=== PATIENT | male | born 1990 | race Caucasian/White ===

== ENCOUNTER 2017-04-21 22:49 | Emergency (ER) | payer SELFPAY ==
[~2017-04-21] VITALS: Ht 182.9 cm; Wt 56.7 kg
[2017-04-22] VITALS: BP 133/83
[2017-04-22] MEDS ORDERED: ACET-704 PO (00:07)
[2017-04-22] MEDS ORDERED: SULF1TAB24 PO (00:07)
--- NOTE | 2017-04-22 00:07 | PHYS DOC ---
Adult General Chief Complaint Chief Complaint: SKIN RASH/ABSCESS [facility] HPI Patient is a 27 year old L presents to the emergency department with complaints of an abscess on the left lower abdominal wall. He states 3 days ago he thought had what he thought was a pimple on the abdominal wall he states that for the last 4 days it has gotten significant bigger. He is using an over- the-counter salve without relief of symptoms. He reports no fever. No chest pain , no abdominal pain, no nausea, no vomiting. Review of Systems Review of Systems Constitutional: Denies fever or chills [] Eyes: Denies change in visual acuity, redness, or eye pain [] HENT: Denies nasal congestion or sore throat [] Respiratory: Denies cough or shortness of breath [] Cardiovascular: No additional information not addressed in HPI [] GI: Denies abdominal pain, nausea, vomiting, bloody stools or diarrhea [] : Denies dysuria or hematuria [] Musculoskeletal: Denies back pain or joint pain [] Integument: Abscess Neurologic: Denies headache, focal weakness or sensory changes [] Endocrine: Denies polyuria or polydipsia [] Physical Exam Physical Exam Constitutional: Well developed, well nourished, no acute distress, non-toxic appearance. [] HENT: Normocephalic, atraumatic, bilateral external ears normal, oropharynx moist, no oral exudates, nose normal. [] Eyes: PERRLA, EOMI, conjunctiva normal, no discharge. [] Neck: Normal range of motion, no tenderness, supple, no stridor. [] Cardiovascular:Heart rate regular rhythm, no murmur [] Lungs & Thorax: Bilateral breath sounds clear to auscultation [] Abdomen: Bowel sounds normal, soft, no tenderness, no masses, no pulsatile masses. [] Skin: Left lower abdominal wall, 1 cm x 2 cm raised erythematous fluctuant abscess. Mildly tender. Back: No tenderness, no CVA tenderness. [] Extremities: No tenderness, no cyanosis, no clubbing, ROM intact, no edema. [] Neurologic: Alert and oriented X 3, normal motor function, normal sensory function, no focal deficits noted. [] Psychologic: Affect normal, judgement normal, mood normal. [] EKG EKG [] Radiology/Procedures Radiology/Procedures [] Course & Med Decision Making Course & Med Decision Making Pertinent Labs and Imaging studies reviewed. (See chart for details) [] Procedure: Area cleansed with Betadine normal saline. Anesthetized with 2 Hernandez of 1% lidocaine. A #11 blade was used to incise the abscess. Moderate amount of purulent bloody discharge. The wound was obesely irrigated. The wound was dressed with sterile gauze. Patient tolerated procedure well. Dragon Disclaimer Dragon Disclaimer This electronic medical record was generated, in whole or in part, using a voice recognition dictation system. Departure Departure Impression: Primary Impression: Abscess Disposition: HOME, SELF-CARE Condition: STABLE Referrals: NO PCP (PCP) Patient Instructions: Abscess Scripts Acetaminophen With Codeine (TYLENOL WITH CODEINE #3 TABLET) 1 Each Tablet 1 TAB PO PRN Q4HRS Y for PAIN, #12 TAB Prov: DAVE RITCHIE APRN 04/22/17 Sulfamethoxazole/Trimethoprim (BACTRIM DS TABLET) 1 Each Tablet 1 TAB PO BID, #20 TAB Prov: DAVE RITCHIE APRN 04/22/17 DAVE RITCHIE APRN Apr 22, 2017 00:07
[2017-04-22] MEDS ORDERED: SMZ/TMP 800/160MG TABLET. PO ONE (00:30)
[2017-04-22] MEDS ORDERED: KETOROLAC TROMETHAMINE 60 MG/2 ML INJ. IM ONE (00:30)
[2017-04-22] MEDS ORDERED: ACETAMINOPHEN/CODEINE 300/30MG TABLET. PO ONE (00:30)
== END 2017-04-22 00:27 | disposition home or self-care (01) ==
LOC: ER 22:49
DX: L02.211 Cutaneous abscess of abdominal wall (principal)
CPT/HCPCS: 10060; 96372; 99283; J1885